=== PATIENT | male | born 1955 | race Caucasian/White ===

== ENCOUNTER 2017-04-28 09:49 | Day surgery (SDC) | payer OTHER ==
[~2017-04-28] VITALS: Ht 185.4 cm; Wt 113.5 kg
[~2017-04-28 09:49] MED LIST: ASPI325T6 PO; CO Q-1010 MG; ELITE MAGNESIUM1 TAB PO; LIPITOR 80MG80 MG PO; LOPRESSOR 225 MG/TAB PO; LORTAB 5/500 501 TAB PO; LORTAB 7.5/5001 TAB PO; NITROSTAT0.4 MG/TAB SL; PLAVIX 75MG TAB75 MG PO; TUMS500 MG PO; TYLENOL 500MG500 MG PO; ZESTRIL 5MG5 MG PO
[2017-04-28 11:00] VITALS: BP 127/85; PULSE 71; TEMP 97.8
[2017-04-28] MEDS ORDERED: TENORMIN 2525 MG/TAB PO (11:04)
[2017-04-28] MEDS ORDERED: PROAIR HFA0.09 MG/AC IH (11:04)
[2017-04-28] MEDS ORDERED: LIPITOR20 MG PO (11:05)
[2017-04-28] MEDS ORDERED: ZYRTEC 10MG10 MG PO (11:06)
[2017-04-28] MEDS ORDERED: VITAMIN D 1001000 IU PO (11:06)
[2017-04-28] MEDS ORDERED: NEURONTIN100 MG/CAP PO (11:08)
[2017-04-28] MEDS ORDERED: VOLTAREN GEL 1%1 TU TP (11:08)
[2017-04-28] MEDS ORDERED: HCTZ 25MG TAB25 MG PO (11:09)
[2017-04-28] MEDS ORDERED: GLUCOPHAGE1000 MG PO (11:10)
[2017-04-28] MEDS ORDERED: VIAGRA100 M1 PO (11:10)
[2017-04-28] MEDS ORDERED: PROTONIX20 MG PO (11:10)
[2017-04-28] MEDS ORDERED: ULTRAM 50MG TAB50 MG PO (11:11)
[2017-04-28] MEDS ORDERED: XANAX .25M0.25 MG/TA PO (11:12)
[2017-04-28] MEDS ORDERED: ASPIRIN 81M81 MG/TA2 PO (11:12)
[2017-04-28] MEDS ORDERED: NORCO 325 MG-51 TAB PO (11:12)
[2017-04-28 12:20] VITALS: BP 115/77; PULSE 75; TEMP 96.7
[2017-04-28 12:30] VITALS: BP 111/76; PULSE 77
[2017-04-28 12:45] VITALS: BP 97/63; PULSE 71
[2017-04-28 13:00] VITALS: BP 101/69; PULSE 69
[2017-04-28 16:55] VITALS: BP 115/77; PULSE 75
== END 2017-04-28 13:13 | disposition home or self-care (01) ==
LOC: SDCO 09:49
DX: K22.70 Barrett's esophagus without dysplasia (principal); K21.9 Gastro-esophageal reflux disease without esophagitis; I11.9 Hypertensive heart disease without heart failure; E11.9 Type 2 diabetes mellitus without complications; Z79.84 Long term (current) use of oral hypoglycemic drugs
CPT/HCPCS: OP; J2250; J2405; J3010; J7030

== ENCOUNTER → 2017-05-03 | Outpatient (CLI) | payer OTHER ==
[~2017-05-03] MED LIST changes: +ASPIRIN 81M81 MG/TA2 PO; +GLUCOPHAGE1000 MG PO; +HCTZ 25MG TAB25 MG PO; +LIPITOR20 MG PO; +NEURONTIN100 MG/CAP PO; +NORCO 325 MG-51 TAB PO; +PROAIR HFA0.09 MG/AC IH; +PROTONIX20 MG PO; +TENORMIN 2525 MG/TAB PO; +ULTRAM 50MG TAB50 MG PO; +VIAGRA100 M1 PO; +VITAMIN D 1001000 IU PO; +VOLTAREN GEL 1%1 TU TP; +XANAX .25M0.25 MG/TA PO; +ZYRTEC 10MG10 MG PO
== END ==
LOC: COL.RAD 14:18
DX: M51.34 Other intervertebral disc degeneration, thoracic region (principal); M51.37 Other intervertebral disc degeneration, lumbosacral region

== ENCOUNTER → 2017-05-11 | Outpatient (CLI) | payer OTHER | LOC: COL.RAD 05-10 09:00 | DX: G95.0 Syringomyelia and syringobulbia (principal); M47.814 Spondylosis without myelopathy or radiculopathy, thoracic region; M47.816 Spondylosis without myelopathy or radiculopathy, lumbar region | CPT/HCPCS: A9585 ==

== ENCOUNTER → 2017-05-29 | Outpatient (CLI) | payer OTHER | LOC: MHCPAIN 13:26 | DX: G89.29 Other chronic pain (principal); M47.817 Spondylosis without myelopathy or radiculopathy, lumbosacral region | CPT/HCPCS: G0463 ==

== ENCOUNTER → 2017-07-11 | Outpatient (CLI) | payer OTHER | LOC: MHCPAIN 14:04 | DX: G89.29 Other chronic pain (principal); M47.817 Spondylosis without myelopathy or radiculopathy, lumbosacral region | CPT/HCPCS: G0463 ==

== ENCOUNTER → 2017-07-13 | Outpatient (CLI) | payer OTHER | LOC: MHCPAIN 13:01 | DX: M47.817 Spondylosis without myelopathy or radiculopathy, lumbosacral region (principal); M46.96 Unspecified inflammatory spondylopathy, lumbar region | CPT/HCPCS: J1040; Q9967 ==

== ENCOUNTER → 2017-08-02 | Outpatient (CLI) | payer OTHER | LOC: MHCPAIN 14:27 | DX: G89.29 Other chronic pain (principal); M47.817 Spondylosis without myelopathy or radiculopathy, lumbosacral region | CPT/HCPCS: G0463 ==

== ENCOUNTER → 2017-08-31 | Outpatient (CLI) | payer OTHER | LOC: COL.RAD 11:42 | DX: R25.1 Tremor, unspecified (principal) | CPT/HCPCS: A9585 ==

== ENCOUNTER → 2017-10-03 | Outpatient (CLI) | payer OTHER | LOC: COL.RAD 13:10 | DX: M25.561 Pain in right knee (principal) ==

== ENCOUNTER → 2017-11-07 | Outpatient (CLI) | payer OTHER | LOC: MHCPAIN 13:38 | DX: G89.29 Other chronic pain (principal); M47.817 Spondylosis without myelopathy or radiculopathy, lumbosacral region; M53.3 Sacrococcygeal disorders, not elsewhere classified | CPT/HCPCS: G0463 ==

== ENCOUNTER → 2017-11-20 | Outpatient (CLI) | payer OTHER | LOC: MHCPAIN 11:51 | DX: M47.817 Spondylosis without myelopathy or radiculopathy, lumbosacral region (principal); M54.5 Low back pain ==

== ENCOUNTER → 2017-11-28 | Outpatient (CLI) | payer OTHER | LOC: MHCPAIN 10:57 | DX: G89.29 Other chronic pain (principal); M47.817 Spondylosis without myelopathy or radiculopathy, lumbosacral region; M53.3 Sacrococcygeal disorders, not elsewhere classified; M79.2 Neuralgia and neuritis, unspecified; E11.40 Type 2 diabetes mellitus with diabetic neuropathy, unspecified | CPT/HCPCS: G0463 ==

== ENCOUNTER → 2018-02-08 | Outpatient (CLI) | payer OTHER | LOC: MHCPAIN 11:25 | DX: M47.817 Spondylosis without myelopathy or radiculopathy, lumbosacral region (principal); M54.16 Radiculopathy, lumbar region | CPT/HCPCS: J2250; J3010 ==

== ENCOUNTER → 2018-02-15 | Outpatient (CLI) | payer OTHER | LOC: MHCPAIN 12:23 | DX: M47.817 Spondylosis without myelopathy or radiculopathy, lumbosacral region (principal); M54.16 Radiculopathy, lumbar region | CPT/HCPCS: J2250; J3010 ==

== ENCOUNTER → 2018-06-12 | Outpatient (CLI) | payer OTHER | LOC: MHCPAIN 14:15 | DX: G89.29 Other chronic pain (principal); M47.817 Spondylosis without myelopathy or radiculopathy, lumbosacral region; M53.3 Sacrococcygeal disorders, not elsewhere classified; M50.90 Cervical disc disorder, unspecified, unspecified cervical region | CPT/HCPCS: G0463 ==

== ENCOUNTER → 2018-06-27 | Outpatient (CLI) | payer OTHER | LOC: COL.RAD 13:06 | DX: M47.812 Spondylosis without myelopathy or radiculopathy, cervical region (principal); E11.9 Type 2 diabetes mellitus without complications; M48.02 Spinal stenosis, cervical region; M50.31 Other cervical disc degeneration, high cervical region; Z95.5 Presence of coronary angioplasty implant and graft; G95.0 Syringomyelia and syringobulbia ==

== ENCOUNTER → 2018-07-04 | Outpatient (CLI) | payer OTHER | LOC: MHCPAIN 11:03 | DX: G89.29 Other chronic pain (principal); M47.817 Spondylosis without myelopathy or radiculopathy, lumbosacral region; M53.3 Sacrococcygeal disorders, not elsewhere classified; M54.81 Occipital neuralgia; M50.90 Cervical disc disorder, unspecified, unspecified cervical region; M47.812 Spondylosis without myelopathy or radiculopathy, cervical region | CPT/HCPCS: G0463 ==

== ENCOUNTER → 2018-07-12 | Outpatient (CLI) | payer OTHER | LOC: MHCPAIN 12:28 | DX: M47.812 Spondylosis without myelopathy or radiculopathy, cervical region (principal); M54.12 Radiculopathy, cervical region ==

== ENCOUNTER → 2018-07-16 | Outpatient (CLI) | payer OTHER | LOC: MHCPAIN 11:13 | DX: G89.29 Other chronic pain (principal); M54.12 Radiculopathy, cervical region; R51 Headache; M47.812 Spondylosis without myelopathy or radiculopathy, cervical region | CPT/HCPCS: G0463 ==

== ENCOUNTER → 2018-07-19 | Outpatient (CLI) | payer OTHER | LOC: MHCPAIN 12:33 | DX: M47.812 Spondylosis without myelopathy or radiculopathy, cervical region (principal); M54.12 Radiculopathy, cervical region ==

== ENCOUNTER → 2018-08-17 | Outpatient (CLI) | payer OTHER | LOC: COL.RAD 08-13 07:30 | DX: Z01.812 Encounter for preprocedural laboratory examination (principal); M54.9 Dorsalgia, unspecified ==

== ENCOUNTER → 2018-08-23 | Outpatient (CLI) | payer OTHER | LOC: MHCPAIN 08-02 14:08 | DX: M47.812 Spondylosis without myelopathy or radiculopathy, cervical region (principal); M54.12 Radiculopathy, cervical region | CPT/HCPCS: J2250; J3010 ==

== ENCOUNTER → 2018-09-12 | Outpatient (CLI) | payer OTHER | LOC: MHCPAIN 12:33 | DX: G89.29 Other chronic pain (principal); M47.812 Spondylosis without myelopathy or radiculopathy, cervical region | CPT/HCPCS: G0463 ==

== ENCOUNTER → 2018-09-13 | Outpatient (CLI) | payer OTHER | LOC: MHCPAIN 08:04 | DX: M47.812 Spondylosis without myelopathy or radiculopathy, cervical region (principal); M54.12 Radiculopathy, cervical region ==

== ENCOUNTER → 2018-09-20 | Outpatient (CLI) | payer OTHER | LOC: MHCPAIN 09:05 | DX: M47.812 Spondylosis without myelopathy or radiculopathy, cervical region (principal); M54.12 Radiculopathy, cervical region ==

== ENCOUNTER → 2018-10-15 | Outpatient (CLI) | payer OTHER | LOC: MHCPAIN 13:04 | DX: M47.812 Spondylosis without myelopathy or radiculopathy, cervical region (principal); M54.12 Radiculopathy, cervical region; G89.29 Other chronic pain | CPT/HCPCS: G0463; J2250; J3010 ==

== ENCOUNTER → 2018-10-22 | Outpatient (CLI) | payer OTHER | LOC: COL.PUL 11:20 | DX: Z02.71 Encounter for disability determination (principal); Z87.891 Personal history of nicotine dependence ==

== ENCOUNTER → 2018-11-27 | Outpatient (CLI) | payer OTHER | LOC: MHCPAIN 12:31 | DX: G89.29 Other chronic pain (principal); M47.812 Spondylosis without myelopathy or radiculopathy, cervical region | CPT/HCPCS: G0463 ==